=== PATIENT | female | born 1960 | race Caucasian/White ===

== ENCOUNTER 2017-04-05 23:36 | Emergency (ER) | payer BC ==
[2017-04-05] MEDS ORDERED: Ketorolac 60 MG/2 ML SDV IM ONE (23:42)
--- NOTE | 2017-04-05 23:45 | EDM.PDOC ---
ED HPI GENERAL MEDICAL PROBLEM - General Chief Complaint: Upper Extremity Injury/Pain Stated Complaint: PAIN LT WRIST Time Seen by Provider: 04/05/17 23:40 - History of Present Illness INITIAL COMMENTS - FREE TEXT/NARRATIVE: HISTORY AND PHYSICAL: History of present illness: The patient is a 56-year-old female who presents after slipping while getting out of the shower and falling onto her left wrist causing pain and swelling to the area. Prior to these events at home she was having a normal evening and into watching football and does admit that she did have alcohol this evening but did not feel dizzy lightheaded or woozy. Patient is left-hand dominant and prior to these events had no systemic complaints of chest pain fever chills lightheadedness headache nausea or vomiting. After the fall she had only complains of left wrist pain and no distal hand or finger pain no proximal elbow or shoulder discomfort and no other extremity complaints. She did not hit her head pass out or black out and has no head neck or back pain. Review of systems: As per history of present illness and below otherwise all systems reviewed and negative. Past medical history: As per history of present illness and as reviewed below otherwise noncontributory. Surgical history: As per history of present illness and as reviewed below otherwise noncontributory. Social history: No reported history of drug or alcohol abuse. Family history: As per history of present illness and as reviewed below otherwise noncontributory. Physical exam: Gen.: Well-developed well-nourished female who is awake alert and oriented speaking clearly in the ED without distress. Vital signs are noted by me HEENT: Atraumatic, normocephalic, there is no evidence of any facial swelling or trauma, negative for conjunctival pallor or scleral icterus, mucous membranes moist, throat clear, neck supple, nontender, trachea midline. There are no midline step-offs tenderness defects of the cervical spine Lungs: Clear to auscultation, breath sounds equal bilaterally, chest nontender. Heart: S1S2, regular rate and rhythm no overt murmurs Abdomen: Soft, nondistended, nontender. NABS Pelvis: Stable nontender. Genitourinary: Deferred. Rectal: Deferred. Extremities: Atraumatic with full range of motion of all extremities with the exception of the left wrist. At the left wrist there is visible soft tissue swelling and a slight deformity appreciated without ecchymosis or erythema. Pulses are intact and distal hand and digits are without tenderness or deformities and proximal forearm elbow humerus and shoulder are without defects deformities or tenderness. The legs are, negative for cords or calf pain. Neurovascular unremarkable. Neuro: Awake, alert, oriented. Cranial nerves II through XII unremarkable. Cerebellum unremarkable. Motor and sensory unremarkable throughout. Exam nonfocal. Diagnostics: X-ray left wrist Therapeutics: Toradol ice pack sling, short arm post mold 0052: Case was discussed with our orthopedic surgeon, Dr. Sierra; he agrees with splinting and he will see the patient in his clinic. I discussed the testing results with the patient and at bedside and I will write for [facility] for pain medication. Please note the patient initially refused a shot of Toradol but after the diagnosis was obtained she then took the shot. Impression: Left distal radial fracture, impacted comminuted Definitive disposition and diagnosis as appropriate pending reevaluation and review of above. left hand Pain Score (Numeric/FACES): 5 - Related Data Allergies Allergy/AdvReac Type Severity Reaction Status Date / Time No Known Allergies Allergy Verified 04/05/17 23:46 Home Meds: Home Meds . [No Known Home Meds] 04/05/17 [History] Review of Systems - Review of Systems Review Of Systems: ROS reveals no pertinent complaints other than HPI. ED EXAM, GENERAL - Physical Exam Exam: See Below (See dictation) Course - Vital Signs Last Recorded V/S: Last Vital Signs Temp 36.1 C 04/05/17 23:47 Pulse 70 04/05/17 23:47 Resp 18 04/05/17 23:47 BP 162/85 H 04/05/17 23:47 Pulse Ox 97 04/05/17 23:47 - Orders/Labs/Meds Orders: Active Orders 24 hr Category Date Time Status Wrist Comp Min 3V Lt [CR] Stat Exams 04/05/17 23:42 Taken Meds: Medications Discontinued Medications Generic Name Dose Route Start Last Admin Trade Name Freq PRN Reason Stop Dose Admin Ketorolac Tromethamine 60 mg 04/05/17 23:42 Toradol IM 04/05/17 23:43 ONETIME ONE Departure - Departure Time of Disposition: :06 Disposition: Home, Self-Care 01 Condition: Good Clinical Impression: Fracture of distal end of radius Qualifiers: Encounter type: initial encounter Fracture type: closed Fracture morphology: other intra-articular Laterality: left Qualified Code(s): S52.572A - Other intraarticular fracture of lower end of left radius, initial encounter for closed fracture - Discharge Information Referrals: PCP,None [Primary Care Provider] - Forms: ED Department Discharge Additional Instructions: The following information is given to patients seen in the emergency department who are being discharged to home. This information is to outline your options for follow-up care. We provide all patients seen in our emergency department with a follow-up referral. The need for follow-up, as well as the timing and circumstances, are variable depending upon the specifics of your emergency department visit. If you don't have a primary care physician on staff, we will provide you with a referral. We always advise you to contact your personal physician following an emergency department visit to inform them of the circumstance of the visit and for follow-up with them and/or the need for any referrals to a consulting specialist. The emergency department will also refer you to a specialist when appropriate. This referral assures that you have the opportunity for followup care with a specialist. All of these measure are taken in an effort to provide you with optimal care, which includes your followup. Under all circumstances we always encourage you to contact your private physician who remains a resource for coordinating your care. When calling for followup care, please make the office aware that this follow-up is from your recent emergency room visit. If for any reason you are refused follow-up, please contact the [facility] emergency department at and ask to speak to the emergency department charge nurse. [facility]--Orthopedic clinic Professional Building [address] [place] [id number] Please leave the splint that was placed in the ER on until you're followed up in the orthopedics clinic. Please call on Friday morning to be seen for follow- up in the next few days and have a cast placed. Ice and elevate the area and use sling at all times. Use [id number] ibuprofen for pain or the stronger Gardner you have been prescribed via [facility]. Return to ER as needed and as discussed - My Orders Last 24 Hours: My Active Orders 04/05/17 23:42 Wrist Comp Min 3V Lt [CR] Stat - Assessment/Plan Last 24 Hours: My Active Orders 04/05/17 23:42 Wrist Comp Min 3V Lt [CR] Stat
--- NOTE | 2017-04-07 11:17 | CR ---
EXAM DATE: 04/05/17 PATIENT'S AGE: 56 Patient: LETTY AQUINO Facility: [place], [place] Site . Site : 1960 Study: XRay Extremity Left [id number] wrist-04/06/2017 12:01:14 AM Ordering Physician: Anisha Decker Final Report: Indication: Left wrist pain. Fall. Technique: Left wrist three views. Comparison: None. Findings: There is a comminuted impacted intra-articular fracture of the distal radius with mild dorsal angulation of fracture fragments. No additional acute osseous abnormality. Soft tissue swelling about the wrist. No radiopaque foreign body evident. Impression: Comminuted, impacted and intra-articular fracture of the distal radius. Dictated by Gutierrez Kennedy MD @ 04/06/2017 12:30:07 AM Dictated by: Gutierrez Kennedy MD @ 04/06/2017 00:30:11 (Electronic Signature) Report Signed by Proxy. ROSITA
== END 2017-04-06 01:59 | disposition home or self-care (01) ==
LOC: MW.ED 23:36
DX: S52.572A Other intraarticular fracture of lower end of left radius, initial encounter for closed fracture (principal); W01.0XXA Fall on same level from slipping, tripping and stumbling without subsequent striking against object, initial encounter
CPT/HCPCS: 73110; 96372; 99283; A4566; J1885; 99284

== ENCOUNTER 2018-07-09 09:15 | Emergency (ER) | payer OTHER, BC ==
--- NOTE | 2018-07-09 09:27 | EDM.PDOC ---
ED HPI GENERAL MEDICAL PROBLEM - General Stated Complaint: left middle finger cut Time Seen by Provider: 07/09/18 09:27 Source of Information: Reports: Patient - History of Present Illness INITIAL COMMENTS - FREE TEXT/NARRATIVE: HISTORY AND PHYSICAL: History of present illness: [Patient presents with laceration on her lateral digit left third tendon function intact pre-and post suture entire limb neurovascularly intact No fever nausea vomiting chills sweats] Review of systems: As per history of present illness and below otherwise all systems reviewed and negative. Past medical history: As per history of present illness and as reviewed below otherwise noncontributory. Surgical history: As per history of present illness and as reviewed below otherwise noncontributory. Social history: No reported history of drug or alcohol abuse. Family history: As per history of present illness and as reviewed below otherwise noncontributory. Physical exam: HEENT: Atraumatic, normocephalic, pupils reactive, negative for conjunctival pallor or scleral icterus, mucous membranes moist, throat clear, neck supple, nontender, trachea midline. Lungs: Clear to auscultation, breath sounds equal bilaterally, chest nontender. Heart: S1S2, regular, negative for clicks, rubs, or JVD. Abdomen: Soft, nondistended, nontender. Negative for masses or hepatosplenomegaly. Negative for costovertebral tenderness. Pelvis: Stable nontender. Genitourinary: Deferred. Rectal: Deferred. Extremities: Atraumatic, negative for cords or calf pain. Neurovascular unremarkable. Neuro: Awake, alert, oriented. Cranial nerves II through XII unremarkable. Cerebellum unremarkable. Motor and sensory unremarkable throughout. Exam nonfocal. Skin as per history of present illness otherwise unremarkable Diagnostics: [] Therapeutics: [T dap] Wound cleansed and explored Lidocaine #3 4-0 Prolene sutures interrupted Standard wound care instructions Impression: [Laceration]-2.5 cm linear laceration, simple Definitive disposition and diagnosis as appropriate pending reevaluation and review of above. - Related Data Allergies Allergy/AdvReac Type Severity Reaction Status Date / Time No Known Allergies Allergy Verified 07/09/18 09:29 Home Meds: Home Meds . 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: Musculoskeletal History: Reports: None Neurological History: Reports: None Psychiatric History: Reports: None Endocrine/Metabolic History: Reports: None Hematologic History: Reports: None Immunologic History: Reports: None Oncologic (Cancer) History: Reports: None Dermatologic History: Reports: None - Infectious Disease History Infectious Disease History: Reports: Chicken Pox, Measles, Mumps - Past Surgical History Musculoskeletal Surgical History: Reports: Other (See Below) Other Musculoskeletal Surgeries/Procedures:: Hand Surgery Social & Family History - Family History Family Medical History: Noncontributory - Caffeine Use Caffeine Use: Reports: Coffee ED ROS GENERAL - Review of Systems Review Of Systems: See Below ED EXAM, GENERAL - Physical Exam Exam: See Below Course - Vital Signs Last Recorded V/S: Last Vital Signs Temp 97.6 F 07/09/18 09:27 Pulse 92 07/09/18 09:27 Resp 18 07/09/18 09:27 BP 198/117 H 07/09/18 09:27 Pulse Ox 93 L 07/09/18 09:27 - Orders/Labs/Meds Orders: Active Orders 24 hr Category Date Time Status Vaccines to be Administered [RC] PER UNIT ROUTINE Care 07/09/18 09:29 Active Meds: Medications Discontinued Medications Generic Name Dose Route Start Last Admin Trade Name Paco PRN Reason Stop Dose Admin Bacitracin 1 dose 07/09/18 10:21 Bacitracin Oint 1 Gm TOP 07/09/18 10:22 ONETIME ONE Diphtheria/Tetanus/Acell Pertussis 0.5 ml 07/09/18 09:28 07/09/18 09:35 Adacel IM 07/09/18 09:29 0.5 ml .ONCE ONE Administration Lidocaine HCl Confirm 07/09/18 09:55 Xylocaine-Mpf 1% Administered 07/09/18 09:56 Dose 5 mls @ as directed .ROUTE .STK-MED ONE Lidocaine HCl 5 ml 07/09/18 09:45 07/09/18 09:55 Xylocaine 1% INJECT 07/09/18 09:46 Not Given ONETIME ONE Lidocaine HCl 5 ml 07/09/18 09:55 Xylocaine-Mpf 1% INJECT 07/09/18 09:56 ONETIME ONE Departure - Departure Time of Disposition: 10:24 Disposition: Home, Self-Care 01 Condition: Good Clinical Impression: Laceration - Discharge Information Referrals: PCP,None [Primary Care Provider] - Additional Instructions: The following information is given to patients seen in the emergency department who are being discharged to home. This information is to outline your options for follow-up care. We provide all patients seen in our emergency department with a follow-up referral. The need for follow-up, as well as the timing and circumstances, are variable depending upon the specifics of your emergency department visit. If you don't have a primary care physician on staff, we will provide you with a referral. We always advise you to contact your personal physician following an emergency department visit to inform them of the circumstance of the visit and for follow-up with them and/or the need for any referrals to a consulting specialist. The emergency department will also refer you to a specialist when appropriate. This referral assures that you have the opportunity for follow-up care with a specialist. All of these measure are taken in an effort to provide you with optimal care, which includes your follow-up. Under all circumstances we always encourage you to contact your private physician who remains a resource for coordinating your care. When calling for follow-up care, please make the office aware that this follow-up is from your recent emergency room visit. If for any reason you are refused follow-up, please contact the [facility] emergency department at and asked to speak to the emergency department charge nurse. - My Orders Last 24 Hours: My Active Orders 07/09/18 09:29 Vaccines to be Administered [RC] PER UNIT ROUTINE - Assessment/Plan Last 24 Hours: My Active Orders 07/09/18 09:29 Vaccines to be Administered [RC] PER UNIT ROUTINE
[2018-07-09] MEDS ORDERED: Diphtheria,Pertussis(Acell),Tetanus Vaccine 0.5 ML Syringe IM ONE (09:28)
[2018-07-09] MEDS ORDERED: Lidocaine 1% 10 ML MDV INJECT ONE (09:45)
[2018-07-09] MEDS ORDERED: Bacitracin Oint 1 GM U/D Packet TOP ONE (10:21)
[2018-07-09] MEDS ORDERED: Hydrochlorothiazide 25 MG Tab PO ONE (10:47)
== END 2018-07-09 11:03 | disposition home or self-care (01) ==
LOC: MW.ED 09:15
DX: S61.213A Laceration without foreign body of left middle finger without damage to nail, initial encounter (principal); Z23 Encounter for immunization; I10 Essential (primary) hypertension; W26.0XXA Contact with knife, initial encounter
CPT/HCPCS: 12001; 90471; 90715; 99283; A9270; J2001; 99282

== ENCOUNTER 2018-07-12 04:43 | Emergency (ER) | payer BC, OTHER ==
[2018-07-12] MEDS ORDERED: traMADol 50 MG Tab PO ONE (04:57)
[2018-07-12] MEDS ORDERED: Ketorolac 60 MG/2 ML SDV IM ONE (04:57)
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
--- NOTE | 2018-07-12 05:59 | CR ---
INDICATION: Fall. Pain TECHNIQUE: Chest and left ribs 4 views. COMPARISON: None available FINDINGS/IMPRESSION : Cardiovascular and mediastinum: Upper limits of normal cardiac size. A mildly ectatic, unfolded aorta. Lungs and pleural spaces: Mild basilar subsegmental atelectasis. No pleural effusions. No pneumothorax seen. Bones and soft tissues: Apparent mild focal contour irregularity in the lateral left 5th rib on one view could be artifactual. Correlate for focal tenderness. Otherwise no displaced rib fractures seen. A chronic left clavicular deformity. Dictated by Min Mcneil MD @ 07/12/2018 5:57:47 AM Dictated by: Min Mcneil MD @ 07/12/2018 05:57:54 (Electronically Signed)
== END 2018-07-12 06:17 | disposition home or self-care (01) ==
LOC: MW.ED 04:43
DX: R07.81 Pleurodynia (principal); I10 Essential (primary) hypertension; Z79.899 Other long term (current) drug therapy
CPT/HCPCS: 71101; 96372; 99283; J1885; J2360